=== PATIENT | male | born 1970 | race American Indian/Alaskan Native ===

== ENCOUNTER → 2016-08-04 | Outpatient (CLI) | payer BC, OTHER ==
[~2016-08-04] MED LIST: Gadobenate Dimeglumine 529 MG/ML 20 ML SDV IV ONE
--- NOTE | 2016-08-08 08:45 | MR ---
EXAMINATION: MRA neck with and without contrast HISTORY: Hypertension COMPARISON: None TECHNIQUE: Multiplanar and multisequence images obtained through the neck before and following the a dministration of 20 mL of MultiHance. FINDINGS: There is a standard 3 vessel origin of the aortic arch. The vertebral and common carotid a rteries are normal in caliber. The bulbs and internal carotid arteries appear normal. No signal neph nereida and stenosis identified. No aneurysm. IMPRESSION: Normal extracranial arterial circulation.
--- NOTE | 2016-08-09 11:22 | ECHO ---
EXAM DATE: 08/04/16 PATIENT'S AGE: 45 The echocardiogram report can be seen in this patient's EMR (Electronic Medical Record) in the Reports section. JOANNE
== END ==
LOC: MW.US 12:47
PROVIDERS: ATTEND Family Medicine
DX: I10 Essential (primary) hypertension (principal); E78.5 Hyperlipidemia, unspecified; R47.01 Aphasia; R42 Dizziness and giddiness
CPT/HCPCS: 70549; 70549-26; 93306; A9577

== ENCOUNTER 2016-09-15 12:41 | Emergency (ER) | payer BC, OTHER ==
[2016-09-15] MEDS ORDERED: Sodium Chloride 0.9% 2.5 ML Syringe FLUSH PRN (12:45)
[2016-09-15] MEDS ORDERED: Sodium Chloride 0.9% 10 ML Syringe FLUSH PRN (12:45)
[2016-09-15] MEDS ORDERED: diphenhydrAMINE 50 MG/ML SDV IVPUSH ONE (12:45)
[2016-09-15] MEDS ORDERED: Ondansetron 4 MG/2 ML SDV IVPUSH ONE (12:45)
[2016-09-15] MEDS ORDERED: Sodium Chloride 0.9% 1,000 ML IV ONE (12:45)
--- NOTE | 2016-09-15 12:55 | EDM.PDOC ---
ED HPI GENERAL MEDICAL PROBLEM - General Chief Complaint: Neurological Problem Stated Complaint: DIZZY Time Seen by Provider: 09/15/16 12:42 - History of Present Illness INITIAL COMMENTS - FREE TEXT/NARRATIVE: HISTORY AND PHYSICAL: History of present illness: The patient is a 45-year-old male with a history of essential hypertension who follows with Dr. Candelario at [facility] and presents with acute onset of dizziness with nausea and vomiting. The patient states that he has an episode of this at least once a week since December. The patient states that he suddenly starts feeling dizzy like the room is spinning he feels off-balance and feels nauseated and he has vomiting. He says that he usually just goes and lays down and it does improve on its own. He was given Antivert which he says does not work. The patient was seen initially seen for some hearing loss and dizziness by ENT, Dr. Shell, and had an MRI of his brain on June 22 of this year which I reviewed and is negative. According to the he was seen in June by an decorator consultant and balance specialist to do testing on him in [place]--- he is not sure of those results. The patient then had a echocardiogram done in July as well as in MRA of the neck August 04 which was normal and an MRA of his head on September 02 which was normal --I reviewed those testing results as well. He states he saw a neurologist at [facility] in [place], Dr. Wilson, 3 weeks ago and he is not sure of his findings and says he was not called as a result of any testing that was done. According to both the patient and the he has not been putting any other new medication for this other than the Antivert. He says this episode is very similar to his prior episodes but seemed more severe so he came for evaluation. He had one episode of vomiting. He denies any head trauma upper respiratory symptoms fevers chills chest pain or shortness of breath and has no abdominal pain. He does not have a headache. He says that when he initially saw the ENT physician he was having hearing loss along with the dizziness. Patient states he had a normal day yesterday. The patient does state that when he has episodes he feels better with his eyes closed his head not moving and he feels worse with movement especially if he stands up. Review of systems: As per history of present illness and below otherwise all systems reviewed and negative. Past medical history: As per history of present illness and as reviewed below otherwise noncontributory. Surgical history: As per history of present illness and as reviewed below otherwise noncontributory. Social history: No reported history of drug or alcohol abuse. Family history: As per history of present illness and as reviewed below otherwise noncontributory. Physical exam: Gen.: Well-developed mildly overweight male who is nontoxic and prefers to keep his eyes closed in the ED. He refrains from moving his head very much and when he opens his eyes he clearly has nystagmus with fast component to the right. Patient has a dull jarquin overall color HEENT: Atraumatic, normocephalic, pupils reactive, negative for conjunctival pallor or scleral icterus, mucous membranes moist, throat clear, neck supple, nontender, trachea midline. TMs are dulled bilaterally and there is no mastoid tenderness or redness. There is no nuchal rigidity or cervical adenopathy. Patient could not tolerate an exam for EOMs and nystagmus is as described above. Lungs: Clear to auscultation, breath sounds equal bilaterally, chest nontender. Heart: S1S2, regular, negative for clicks, rubs, or JVD. Abdomen: Soft, nondistended, nontender. Negative for masses or hepatosplenomegaly. Negative for costovertebral tenderness. Pelvis: Stable nontender. Genitourinary: Deferred. Rectal: Deferred. Extremities: Atraumatic, negative for cords or calf pain. Neurovascular unremarkable. Full range of motion without defects or deficits and no pedal edema Neuro: Awake, alert, oriented. Cranial nerves II through XII unremarkable. Motor and sensory unremarkable throughout. Exam nonfocal. Skin: No evidence of rashes or lesions but he is somewhat cool and mildly diaphoretic and his coloring is off with a sallow appearance as described above. Diagnostics: EKG CBC CMP troponin CT scan of the head--- per family request CPK and prolactin was added Therapeutics: IV O2 monitor IV fluids Zofran Benadryl As the patient told me he had been at [facility] in [place] I contacted Dr. Sheth and she entered their computer system and says that there is no record of him at [facility]. I confirmed with the patient and the of his registration information and they are all accurate. I will continue with my current workup and recontact Dr. Sheth now that I have the name of the neurologist that the patient saw. Upon further questioning the tells me that when they saw the neurologist he recommended that he start vitamins but no other medications were prescribed and at that visit is when he ordered the MRI of the brain and they have not followed up with the neurologist since that time. The patient throughout the course of all these symptoms has never done vestibular therapy and according to the the decorator consultant and balance specialist in [place] said he didn't have normal vertigo 1400: All current testing results were discussed with the patient and at bedside. The patient is significantly improved with normal color and no diaphoresis and he is comfortable with his eyes open and looking around and able to move his head. He currently has no visible nystagmus on my exam. I will discuss his case with Dr. Sheth again including the 's request that I do some testing that was requested by their primary, Dr. Candelario. Dr. Candelario had suggested that he have a prolactin and CPK level drawn at the time of an episode as well as an EEG done. They're concerned because he did have this acute episode and if that testing would be helpful they like to have it performed. I will discuss this test with Dr. Sheth. 1412: A rediscuss this case with Dr. Sheth including the family's request to do prolactin and CPK levels which she states that I can go ahead and do but she does not really feel that they are indicated in this case were will be helpful in his follow-up. She states that she is unable to do an EEG at this time nor does she feel that it's indicated. She recommends that the patient follow up with Dr. Wilson in [place] but if they want to stay local she'll be happy to see them in her clinic. She advised giving the patient a prescription for Phenergan at home as it may help the vertiginous symptoms as well as the nausea and vomiting. I discussed this conversation with the patient and at bedside and advised them for reasons to return to the ED. I also told him that should call Dr. Wilson make sure that they follow-up with him in the clinic as scheduled. Dr. Sheth also felt that the workup for emergent problems, MRI and MRAs, had ordered or performed and she would not repeat those. Critical care time excluding procedures:31min Impression: Acute episode of dizziness/vertigo improved with history of episodes of dizziness and workup in progress Definitive disposition and diagnosis as appropriate pending reevaluation and review of above. - Related Data Allergies Allergy/AdvReac Type Severity Reaction Status Date / Time No Known Allergies Allergy Verified 09/15/16 12:45 Home Meds: Home Meds Hydrochlorothiazide [Hydrochlorothiazide] 25 mg PO DAILY 01/05/15 [History] Naproxen Sodium [Aleve] 220 mg PO DAILY 01/05/15 [History] Past Medical History Other Gastrointestinal History: Occasional Heartburn Other Musculoskeletal History: Knee Injury on Right with ACL repair and other repair, hx: Fractures Right Hand/fingers, Rib, Clavicle - Past Surgical History Other Musculoskeletal Surgeries/Procedures:: Open Right Knee procedure with hardware Social & Family History - Tobacco Use Smoking Status *Q: Former Smoker Years of Tobacco use: 36 Packs/Tins Daily: 1 Second Hand Smoke Exposure: No - Recreational Drug Use Recreational Drug Use: No Drug Use in Last 12 Months: No ED ROS GENERAL - Review of Systems Review Of Systems: ROS reveals no pertinent complaints other than HPI. ED EXAM, GENERAL - Physical Exam Exam: See Below (See dictation) Course - Vital Signs Last Recorded V/S: Last Vital Signs Temp 30.0 C L 09/15/16 12:43 Pulse 78 09/15/16 13:39 Resp 15 09/15/16 13:39 BP 121/67 09/15/16 13:39 Pulse Ox 99 09/15/16 13:39 - Orders/Labs/Meds Orders: Active Orders 24 hr Category Date Time Status Cardiac Monitoring [RC] . DIRECTED Care 09/15/16 12:44 Active EKG Documentation Completion [RC] STAT Care 09/15/16 12:44 Active Oxygen Therapy, ED [RC] ASDIRECTED Care 09/15/16 12:44 Active Pulse Oximetry [RC] ASDIRECTED Care 09/15/16 12:44 Active CREATINE KINASE,CK [CHEM] Stat Lab 09/15/16 14:15 Ordered PROLACTIN [CHEM] Stat Lab 09/15/16 14:15 Ordered Sodium Chloride 0.9% [Saline Flush] Med 09/15/16 12:45 Active 10 ml FLUSH ASDIRECTED PRN Sodium Chloride 0.9% [Saline Flush] Med 09/15/16 12:45 Active 2.5 ml FLUSH ASDIRECTED PRN Saline Lock Insert [OM.PC] Stat Oth 09/15/16 12:44 Ordered Medication Orders Sodium Chloride (Saline Flush) 10 ml FLUSH ASDIRECTED PRN PRN Reason: Keep Vein Open Last Admin: 09/15/16 13:09 Dose: 10 ml Sodium Chloride (Saline Flush) 2.5 ml FLUSH ASDIRECTED PRN PRN Reason: Keep Vein Open Last Admin: 09/15/16 13:10 Dose: 2.5 ml Labs: Laboratory Tests 09/15/16 09/15/16 09/15/16 Range/Units 12:56 12:56 12:56 WBC 9.24 (4.0-11.0) K/uL RBC 4.84 (4.50-5.90) M/uL Hgb 14.8 (13.0-17.0) g/dL Hct 42.6 (38.0-50.0) % MCV 88.0 (80.0-98.0) fL MCH 30.6 (27.0-32.0) pg MCHC 34.7 (31.0-37.0) g/dL RDW Std Deviation 42.5 (28.0-62.0) fl RDW Coeff of Agustina 13 (11.0-15.0) % Plt Count 268 (150-400) K/uL MPV 9.20 (7.40-12.00) fL Neut % (Auto) 45.7 L (48.0-80.0) % Lymph % (Auto) 43.4 H (16.0-40.0) % Amite % (Auto) 8.7 (0.0-15.0) % Eos % (Auto) 1.6 (0.0-7.0) % Baso % (Auto) 0.6 (0.0-1.5) % Neut # (Auto) 4.2 (1.4-5.7) K/uL Lymph # (Auto) 4.0 H (0.6-2.4) K/uL Amite # (Auto) 0.8 (0.0-0.8) K/uL Eos # (Auto) 0.2 (0.0-0.7) K/uL Baso # (Auto) 0.1 (0.0-0.1) K/uL Nucleated RBC % 0.0 /100WBC Nucleated RBCs # 0 K/uL Sodium 138 (136-146) mmol/L Potassium 3.7 (3.5-5.1) mmol/L Chloride 106 (98-110) mmol/L Carbon Dioxide 20 L (21-31) mmol/L BUN 20 (6.0-23.0) mg/dL Creatinine 1.1 (0.6-1.5) mg/dL Est Cr Clr Drug Dosing 82.05 mL/min Estimated GFR (MDRD) > 60.0 ml/min Glucose 137 H (60-110) mg/dL Calcium 9.1 (8.8-10.8) mg/dL Total Bilirubin 0.7 (0.1-1.5) mg/dL AST 28 (5-40) IU/L ALT 61 H (8-54) IU/L Alkaline Phosphatase 75 (40-150) Troponin I < 0.10 (0.0-0.29) NG/ML Total Protein 7.4 (6.0-8.0) g/dL Albumin 4.4 (3.5-5.0) g/dL Globulin 3.0 (2.0-3.5) g/dL Albumin/Globulin Ratio 1.5 (1.3-2.8) Meds: Medications Generic Name Dose Route Start Last Admin Trade Name Freq PRN Reason Stop Dose Admin Sodium Chloride 10 ml 09/15/16 12:45 09/15/16 13:09 Saline Flush FLUSH 10 ml ASDIRECTED PRN Administration Keep Vein Open Sodium Chloride 2.5 ml 09/15/16 12:45 09/15/16 13:10 Saline Flush FLUSH 2.5 ml ASDIRECTED PRN Administration Keep Vein Open Discontinued Medications Generic Name Dose Route Start Last Admin Trade Name Freq PRN Reason Stop Dose Admin Diazepam 1 mg 09/15/16 12:45 09/15/16 13:13 Valium IVPUSH 09/15/16 12:46 1 mg ONETIME ONE Administration Diphenhydramine HCl 50 mg 09/15/16 12:45 09/15/16 13:10 Benadryl IVPUSH 09/15/16 12:46 50 mg ONETIME ONE Administration Sodium Chloride 1,000 mls @ 999 mls/hr 09/15/16 12:45 09/15/16 13:09 Normal Saline IV 09/15/16 13:45 999 mls/hr STAT ONE Administration Ondansetron HCl 4 mg 09/15/16 12:45 09/15/16 13:10 Zofran IVPUSH 09/15/16 12:46 4 mg ONETIME ONE Administration Departure - Departure Time of Disposition: 14:19 Disposition: Home, Self-Care 01 Condition: Good Clinical Impression: Dizziness, Acute onset of severe vertigo - Discharge Information Forms: ED Department Discharge Additional Instructions: The following information is given to patients seen in the emergency department who are being discharged to home. This information is to outline your options for follow-up care. We provide all patients seen in our emergency department with a follow-up referral. The need for follow-up, as well as the timing and circumstances, are variable depending upon the specifics of your emergency department visit. If you don't have a primary care physician on staff, we will provide you with a referral. We always advise you to contact your personal physician following an emergency department visit to inform them of the circumstance of the visit and for follow-up with them and/or the need for any referrals to a consulting specialist. The emergency department will also refer you to a specialist when appropriate. This referral assures that you have the opportunity for followup care with a specialist. All of these measure are taken in an effort to provide you with optimal care, which includes your followup. Under all circumstances we always encourage you to contact your private physician who remains a resource for coordinating your care. When calling for followup care, please make the office aware that this follow-up is from your recent emergency room visit. If for any reason you are refused follow-up, please contact the [facility] emergency department at and ask to speak to the emergency department charge nurse. [facility] Primary care- Internal Medicine and Family [facility] [address] [place] [id number] [facility] Specialty care-Neurology Professional Building [address] [place] [address], [address] [place] [address] Push hydration and use Phenergan as needed for dizziness nausea and vomiting. You may also continue to use her Antivert. Please call and give an update to Dr. Wilson and also keep your appointment with him for follow-up. You may also call and follow-up with our neurologist Dr. Sheth if you choose. Return to ER as needed and as discussed. - My Orders Last 24 Hours: My Active Orders 09/15/16 12:44 Cardiac Monitoring [RC] . DIRECTED EKG Documentation Completion [RC] STAT Oxygen Therapy, ED [RC] ASDIRECTED Pulse Oximetry [RC] ASDIRECTED Saline Lock Insert [OM.PC] Stat 09/15/16 12:45 Sodium Chloride 0.9% [Saline Flush] 10 ml FLUSH ASDIRECTED PRN Sodium Chloride 0.9% [Saline Flush] 2.5 ml FLUSH ASDIRECTED PRN 09/15/16 14:15 CREATINE KINASE,CK [CHEM] Stat PROLACTIN [CHEM] Stat - Assessment/Plan Last 24 Hours: My Active Orders 09/15/16 12:44 Cardiac Monitoring [RC] . DIRECTED EKG Documentation Completion [RC] STAT Oxygen Therapy, ED [RC] ASDIRECTED Pulse Oximetry [RC] ASDIRECTED Saline Lock Insert [OM.PC] Stat 09/15/16 12:45 Sodium Chloride 0.9% [Saline Flush] 10 ml FLUSH ASDIRECTED PRN Sodium Chloride 0.9% [Saline Flush] 2.5 ml FLUSH ASDIRECTED PRN 09/15/16 14:15 CREATINE KINASE,CK [CHEM] Stat PROLACTIN [CHEM] Stat
[2016-09-15 13:26] LABS: CHLORIDE,CL 106 mmol/L (98-110); SODIUM,NA 138 mmol/L (136-146)
--- NOTE | 2016-09-15 13:39 | CT ---
EXAMINATION: Non contrast CT head. Coronal and sagittal reformats. HISTORY: Pain FINDINGS: No evidence of intra or extra axial hemorrhage, mass, midline shift, hydrocephalus or edema. No hypoattenuation changes in the major vascular territories to suggest acute infarct. No abnormal intracranial calcifications are detected. No evidence of substantial vascular calcifica tions. Paranasal sinuses and mastoid air cells are well aerated without substantial findings. The orbits a nd globes are symmetric. Pituitary fossa appears unremarkable. Calvarium is intact. No evidence of skull fracture. IMPRESSION: No acute intracranial findings.
[2016-09-15 14:40] VITALS: BP 111/69
== END 2016-09-15 14:40 | disposition home or self-care (01) ==
LOC: MW.ED 12:41
DX: R42 Dizziness and giddiness (principal); Z98.890 Other specified postprocedural states; Z79.899 Other long term (current) drug therapy; Z87.891 Personal history of nicotine dependence
CPT/HCPCS: 36415; 70450; 80053; 82550; 84146; 84484; 85025; 93005; 96361; 96374; 96375; 99284; J1200; J2405; J3360; J7040; 99291